=== PATIENT | female | born 2000 | race Caucasian/White ===

== ENCOUNTER 2020-09-08 12:21 | Emergency (ER) | payer OTHER ==
[2020-09-08] MEDS ORDERED: RINGERS SOLUTION,LACTATED 1,000 ML IV ONE (13:19)
[2020-09-08] MEDS ORDERED: METOCLOPRAMIDE HCL INJ/PF 10 MG/2 ML SDV IV ONE (13:20)
[2020-09-08] MEDS ORDERED: DIPHENHYDRAMINE HCL 50 MG/ML VIAL IV ONE (13:20)
--- NOTE | 2020-09-08 13:24 | ER Document Report ---
ED Medical Screen (RME) - General Stated Complaint: HEADACHE/VOMITING/18 WKS Time Seen by Provider: 09/08/20 13:17 Mode of Arrival: Ambulatory Information source: Patient Notes: HPI; 20-year-old female 1, 18 weeks presents to the emergency room complaining of a headache for the past 3 days. Describes the headache as a dull ache to the left frontal region of her head. No sudden thunderclap. Denies worst headache of her life. No head trauma or head injury. States she is been taking 1000 g of Tylenol a day without relief. No history of migraines. Complains of nausea, states she vomited once this morning. Denies any OB related complaints. PE: Alert and oriented x3. Lungs: Clear to auscultation without rales, rhonchi, wheezes. Heart: Regular rate and rhythm without murmurs, rubs, gallops. I have greeted and performed a rapid initial assessment of this patient. A comprehensive ED assessment and evaluation of the patient, analysis of test results and completion of the medical decision making process will be conducted by additional ED providers. I have specifically instructed the patient or family members with the patient to immediately return to any nursing staff shou ld anything change in the patient's condition or with their chief complaint. TRAVEL OUTSIDE OF THE [place] IN LAST 30 DAYS: No Physical Exam - Vital signs Vitals: Temp Pulse Resp BP Pulse Ox 98.3 F 96 16 132/64 H 100 09/08/20 12:28 09/08/20 12:28 09/08/20 12:28 09/08/20 12:28 09/08/20 12:28 Course - Vital Signs Vital signs: Temp Pulse Resp BP Pulse Ox 98.3 F 96 16 132/64 H 100 09/08/20 12:28 09/08/20 12:28 09/08/20 12:28 09/08/20 12:28 09/08/20 12:28
[2020-09-08 14:10] LABS: ABSOLUTE BASOPHILS # (AUTO) 0.1 10^3/uL (0.0-0.2); ABSOLUTE LYMPHOCYTES (AUTO) 2.2 10^3/uL (0.5-4.7); ABSOLUTE MONOCYTES (AUTO) 0.5 10^3/uL (0.1-1.4); ABSOLUTE NEUT (AUTO) 6.7 10^3/uL (1.7-8.2); BASOPHILS % (AUTO) 0.6 % (0-2); EOSINOPHILS % (AUTO) 0.5 % (0-6); HEMATOCRIT 38.8 % (36.0-47.0); HEMOGLOBIN 13.5 g/dL (12.0-15.5); LYMPHOCYTES % (AUTO) 22.9 % (13-45); MEAN CORPUSCULAR HEMOGLOBIN 31.7 pg (27.0-33.4); MEAN CORPUSCULAR HGB CONC 34.8 g/dL (32.0-36.0); MEAN CORPUSCULAR VOLUME 91 fl (80-97); MONOCYTES % (AUTO) 5.6 % (3-13); PLATELET COUNT 210 10^3/uL (150-450); RED BLOOD COUNT 4.26 10^6/uL (3.72-5.28); RED CELL DISTRIBUTION WIDTH 12.5 % (11.5-14.0); SEGMENTED NEUTROPHILS % (AUTO) 70.4 % (42-78); TOTAL CELLS COUNTED % (AUTO) 100 %; WHITE BLOOD COUNT 9.4 10^3/uL (4.0-10.5)
[2020-09-08 14:28] LABS: ALBUMIN 3.9 g/dL (3.5-5.0); ALKALINE PHOSPHATASE 66 U/L (38-126); ANION GAP 10 (5-19); ASPARTATE AMINO TRANSFERASE 24 U/L (14-36); BILIRUBIN,DIRECT 0.1 mg/dL (0.0-0.4); BILIRUBIN,TOTAL 0.4 mg/dL (0.2-1.3); BLOOD UREA NITROGEN 12 mg/dL (7-20); CALCIUM 9.1 mg/dL (8.4-10.2); CARBON DIOXIDE 23 mmol/L (22-30); CHLORIDE 103 mmol/L (98-107); GLUCOSE 74 mg/dL (75-110); POTASSIUM 4.3 mmol/L (3.6-5.0); TOTAL PROTEIN 6.9 g/dL (6.3-8.2)
[2020-09-08 15:43] LABS: APPEARANCE,URINE SLIGHTLY-CLOUDY; BILIRUBIN,URINE NEGATIVE (NEGATIVE); COLOR,URINE YELLOW; GLUCOSE, URINE NEGATIVE (NEGATIVE); KETONES,URINE 20 mg/dL (NEGATIVE); LEUKOCYTE ESTERASE,URINE MODERATE (NEGATIVE); NITRITE,URINE NEGATIVE (NEGATIVE); PROTEIN,URINE NEGATIVE (NEGATIVE); UROBILINOGEN,URINE NEGATIVE mg/dL (<2.0)
--- NOTE | 2020-09-08 16:10 | ER Document Report ---
HPI - HPI Patient complains to provider of: Headache Time Seen by Provider: 09/08/20 13:17 Pain Level: 3 Context: 20-year-old female 18 weeks 1 presents to the emergency room complaining of a headache for the past 3 days. States she is been taking her thighs milligrams of Tylenol daily without relief. Denies worst headache of her life. Denies any sudden thunderclap. Denies any history of migraines. No head trauma head injury. Patient states she did vomit once today and noticed a very small amount of blood in the vomit. Called her ANIMAL SERVICES OFFICER and was told to come to the emergency room for possible dehydration. She denies any abdominal pain, no vaginal bleeding, no vaginal discharge. Associated Symptoms: None Exacerbated by: Denies Relieved by: Denies Similar symptoms previously: No Recently seen / treated by doctor: No - ROS Systems Reviewed and Negative: Yes All other systems reviewed and negative - CONSTITUTIONAL Constitutional: DENIES: Fever, Chills - NEURO Neurology: REPORTS: Headache - GASTROINTESTINAL Gastrointestinal: REPORTS: Patient vomiting. DENIES: Abdominal Pain - REPRODUCTIVE Reproductive: REPORTS: : - DERM Skin Color: Normal, Ebony Skin Problems: None Past Medical History - General Information source: Patient - Social History Smoking Status: Never Smoker Frequency of alcohol use: None Drug Abuse: None Family History: Reviewed & Not Pertinent Vertical Provider Document - CONSTITUTIONAL Agree With Documented VS: Yes Exam Limitations: No Limitations General Appearance: Mild Distress - INFECTION CONTROL TRAVEL OUTSIDE OF THE [place] IN LAST 30 DAYS: No - HEENT HEENT: Atraumatic, Normal ENT Exam, Normocephalic, PERRLA - NECK Neck: Normal Inspection, Supple, Thyroid Normal - RESPIRATORY Respiratory: Breath Sounds Normal, No Respiratory Distress, Chest Non-Tender - CARDIOVASCULAR Cardiovascular: Regular Rate, Regular Rhythm, No Murmur - BACK Back: Normal Inspection. negative: CVA Tenderness-Right, CVA Tenderness-Left - MUSCULOSKELETAL/EXTREMETIES Musculoskeletal/Extremeties: FROM - NEURO Level of Consciousness: Awake, Alert, Appropriate Motor/Sensory: No Motor Deficit, No Sensory Deficit - DERM Integumentary: Warm, Dry, No Rash Course - Re-evaluation Re-evalutation: 09/08/20 16:05 Patient was offered a chest x-ray for her vomiting episode from earlier today which she states had a very small amount of blood. Has not vomited since. Patient refused chest x-ray secondary to and risk of radiation to the fetus. Patient is resting comfortably she is pain-free at this time. States her headache has resolved. heart tones 152. All lab results were reviewed with the patient. She was counseled to push fluids. Call your ANIMAL SERVICES OFFICER for an outpatient follow-up appointment. Patient was given strict return to the emergency room guidelines. Return for any new or worsening symptoms. All questions were answered. Patient verbalized understanding and agrees with plan of care. 09/08/20 16:06 09/08/20 16:52 - Vital Signs Vital signs: Temp Pulse Resp BP Pulse Ox 98.3 F 96 16 132/64 H 100 09/08/20 12:28 09/08/20 12:28 09/08/20 12:28 09/08/20 12:28 09/08/20 12:28 - Laboratory Result Diagrams: 09/08/20 13:27 09/08/20 13:27 Laboratory results interpreted by me: 09/08/20 09/08/20 13:27 15:13 Sodium 135.5 L Glucose 74 L Urine Ketones 20 H Ur Leukocyte Esterase MODERATE H Urine Ascorbic Acid 20 H Discharge - Discharge Clinical Impression: Headache Qualifiers: Headache type: unspecified Headache chronicity pattern: acute headache Int ractability: not intractable Qualified Code(s): R51.9 - Headache, unspecified Qualifiers: Weeks of gestation: 18 weeks Qualified Code(s): Z3A.18 - 18 weeks gestation of Condition: Stable Disposition: HOME, SELF-CARE Instructions: Headache ([facility]), ([facility]) Additional Instructions: Encourage fluids. Call your ANIMAL SERVICES OFFICER for follow-up appointment. Return to the emergency room for any new or worsening symptoms. Referrals: GAGE JOSUE MD [Primary Care Provider] - Follow up as needed
[2020-09-08 16:41] VITALS: BP 136/68
== END 2020-09-08 16:20 | disposition home or self-care (01) ==
LOC: ER 12:21
DX: O26.892 Other specified pregnancy related conditions, second trimester (principal); R51.9 Headache, unspecified; O99.612 Diseases of the digestive system complicating pregnancy, second trimester; K92.0 Hematemesis; Z3A.18 18 weeks gestation of pregnancy
CPT/HCPCS: 99284; 96361; 96374; 96375; 36415; 85025; 80053; 81001; J1200; J2765; J7120